=== PATIENT | female | born 2005 | race Caucasian/White ===

== ENCOUNTER 2024-11-28 12:33 | Emergency (ER) | payer SELFPAY ==
[2024-11-28 12:39] VITALS: BP 136/78; PULSE 122; O2SAT 98
[2024-11-28 12:47] VITALS: BP 125/70; PULSE 111; RESP 16; TEMP 36.1; O2SAT 95; BMI 27.3
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
[2024-11-28 14:41] LABS: MANUAL DIFF FLAG NO
[2024-11-28 14:45] LABS: Hematocrit 35.9 % (37.0-47.0); Hemoglobin 11.8 g/dl (12.0-16.0); Imm Gran Abs Auto 0.03 X10*3/uL (0.00-0.03); Imm Gran Pct Auto 0.3 % (0.0-0.4); Lymphocytes Absolute Auto 1.4 X10*3/uL (1.2-4.9); Mean Corpuscular HGB Conc 32.9 g/dl (31.0-35.0); Mean Corpuscular Hemoglobin 27.6 pg (27.0-33.0); Mean Corpuscular Volume 83.9 fL (80.0-98.0); NRBC Abs Auto 0.000 X10*3/uL (0.0-0.012); NRBC Pct Auto 0.0 /100WBC (0.0-0.2); Platelet Count 281 X10*3/uL (160-400); Red Blood Count 4.28 X10*6/uL (4.20-5.50); White Blood Count 11.2 X10*3/uL (4.8-10.8)
[2024-11-28 15:05] LABS: Alanine Aminotransferase 11 U/L (0-31); Albumin Level 4.3 g/dL (3.5-5.0); Alkaline Phosphatase 109 U/L (39-117); Anion Gap 11 (12-20); Aspartate Amino Transferase 18 U/L (5-31); Blood Urea Nitrogen 6 mg/dL (9-16); Calcium 8.9 mg/dL (8.4-10.2); Carbon Dioxide 26 mmol/L (22-29); Chloride 106 mmol/L (96-108); Creatinine Clr Calc Pharmacy 122.3; Estimated Glomerular Filt Rate > 60; Magnesium 2.0 mg/dL (1.6-2.6); Potassium 4.0 mmol/L (3.3-5.1); Sodium 139 mmol/L (135-145); Total Protein 7.3 g/dL (6.5-8.0)
[2024-11-28 20:00] VITALS: BP 120/68; PULSE 110; RESP 15; TEMP 36.6; O2SAT 100
[2024-11-28 21:08] VITALS: BP 122/62; PULSE 94; RESP 14; TEMP 36.2; O2SAT 100
[2024-11-28] MEDS: Diphth,Pertus(ACell),Tet Adult 0.5 ML SYRINGE IM (21:15)
[2024-11-28] MEDS: Lidocaine 4 % Cream KIT 1 APPL TOPICAL (21:16)
[2024-11-28 21:20] VITALS: BP 122/62; PULSE 94; RESP 14; TEMP 36.2; O2SAT 100
== END 2024-11-28 21:28 | disposition home or self-care (01) ==
PROVIDERS: Physician Assistant Medical; Emergency Provider Emergency Medicine
DX: T24.231A Burn of second degree of right lower leg, initial encounter (principal); X10.2XXA Contact with fats and cooking oils, initial encounter; Y93.89 Activity, other specified; Y92.098 Other place in other non-institutional residence as the place of occurrence of the external cause; Y99.8 Other external cause status
CPT/HCPCS: 36415; 80053; 83735; 85025; 85652; 86140; 90471; 90715; 96372; 99283; 99284; J1885